=== PATIENT | male | born 1970 | race Two or more races ===

== ENCOUNTER 2023-01-02 18:28 | Inpatient (IN) | payer MEDICAID, OTHER ==
[~2023-01-02] VITALS: Ht 175.3 cm; Wt 77.0 kg
[2023-01-02 19:50] LABS: Basophils # (auto) 0 10 ^3/uL (0-0.2); Hemoglobin 12.6 g/dL (13.5-17.5); Mean Corpuscular Hemoglobin 32.2 pg (28.0-32.0); Nucleated Red Blood Cells % 0.1 %
[2023-01-02 19:54] LABS: Basophils % (auto) 0.3 % (0.0-2.0); Eosinophils # (auto) 0.1 10 ^3/uL (0-0.8); Eosinophils % (auto) 1.2 % (0.0-7.0); Hematocrit 36.1 % (41.0-53.0); Lymphocytes # (auto) 1.5 10 ^3/uL (0.4-5.4); Lymphocytes % (auto) 13.5 % (10.0-50.0); Mean Corpuscular Hgb Conc. 34.8 g/dL (32.0-36.0); Mean Corpuscular Volume 92.5 fL (80.0-100.0); Monocytes # (auto) 0.5 10 ^3/uL (0-1.3); Monocytes % (auto) 4.6 % (0.0-12.0); Neutrophils # (auto) 8.8 10 ^3/uL (1.6-8.6); Neutrophils % (auto) 80.4 % (37.0-80.0); Red Cell Distribution Width 13.2 % (11.8-14.3); White Blood Cell 10.9 10^3/uL (4.4-10.8)
[2023-01-02 20:05] VITALS: PULSE 61; RESP 16; O2SAT 92
[2023-01-02 20:07] LABS: INR 1.08 (0.9-1.15); Prothrombin Time 11.3 sec (9.3-11.8)
[2023-01-02 20:12] LABS: Alanine Aminotransferase 28 U/L (16-61); Albumin 3.1 g/dL (3.4-5.0); Anion Gap 3 (5-15); Aspartate Aminotransferase 38 U/L (15-37); Blood Alcohol < 3.0 mg/dL (<10); Blood Urea Nitrogen 9 mg/dL (7-18); Calcium 7.3 mg/dL (8.5-10.1); Carbon Dioxide 25 mmol/L (21-32); Chloride 112 mmol/L (98-107); Glucose 252 mg/dL (74-106); Lipase 140 U/L (73-393); Potassium 3.3 mmol/L (3.5-5.1); Salicylate 2.1 mg/dL (2.8-20.0); Sodium 140 mmol/L (136-145)
[2023-01-02 20:16] LABS: Alkaline Phosphatase 64 U/L (45-117); BUN/Creatinine Ratio 10.5 (10.0-20.0); Bilirubin, Total 0.2 mg/dL (0.2-1.0); GFR African American 121 mL/min; GFR Non-African American 100 mL/min; Total Protein 5.7 g/dL (6.4-8.2)
[2023-01-02] MEDS ORDERED: ONDANSETRON HCL 4 MG/2 ML VIAL IV ONE (21:30)
[2023-01-02] MEDS ORDERED: DOCUSATE SOD 100 MG CAP PO PRN (22:00)
[2023-01-02] MEDS ORDERED: ONDANSETRON HCL 4 MG/2 ML VIAL IV PRN (22:00)
[2023-01-02] MEDS ORDERED: HYDROcodone-ACET 5/325MG TAB PO PRN (22:00)
[2023-01-02] MEDS ORDERED: POTASSIUM CHL 20MEQ/100ML 100 ML IV ONE (22:00)
[2023-01-02] MEDS: SODIUM CHLOR 0.9% PF (SALINE LOCK) 10ML VIAL/SYR IV SCH (22:51)
[2023-01-02] MEDS ORDERED: MORPHINE SULFATE INJ 2 MG/ml SYRG IV PRN (23:45)
[2023-01-02] MEDS ORDERED: NITROGLYCERIN 0.4 MG SL TAB SL PRN (23:45)
[2023-01-03 01:29] LABS: Urine Bacteria FEW /hpf (None Seen); Urine Blood Negative /uL (Negative); Urine Clarity Clear (Clear); Urine Color Colorless (Yellow); Urine Hyaline Cast FEW /lpf (0 - 2); Urine Mucus FEW (None Seen); Urine Protein, UAD TRACE (Negative); Urine Specific Gravity 1.011 (1.001-1.035); Urine Urobilinogen Normal (Negative); Urine WBC 2 /hpf (0 - 3); Urine pH 5.5 (5.0-8.0)
[2023-01-03 01:45] LABS: Alcohol, Urine < 3.0 mg/dL (0-10); Amphetamine Screen, Urine NEGATIVE (NEGATIVE); Barbiturate Scree,Urine NEGATIVE (NEGATIVE); Benzodiazephine Screen, Urine NEGATIVE (NEGATIVE); Cannabinoid Screen, Urine NEGATIVE (NEGATIVE); Cocaine Screen, Urine NEGATIVE (NEGATIVE); Phencyclidine Screen, Urine NEGATIVE (NEGATIVE)
[2023-01-03 01:48] LABS: Opiate Scree,Urine NEGATIVE (NEGATIVE)
[2023-01-03 05:41] LABS: Basophils # (auto) 0 10 ^3/uL (0-0.2); Basophils % (auto) 0.1 % (0.0-2.0); Eosinophils # (auto) 0 10 ^3/uL (0-0.8); Hematocrit 38.9 % (41.0-53.0); Hemoglobin 13.4 g/dL (13.5-17.5); Lymphocytes % (auto) 7.8 % (10.0-50.0); Mean Corpuscular Hemoglobin 32.2 pg (28.0-32.0); Mean Corpuscular Hgb Conc. 34.4 g/dL (32.0-36.0); Mean Corpuscular Volume 93.4 fL (80.0-100.0); Monocytes # (auto) 0.6 10 ^3/uL (0-1.3); Monocytes % (auto) 4.4 % (0.0-12.0); Neutrophils # (auto) 11.3 10 ^3/uL (1.6-8.6); Neutrophils % (auto) 87.7 % (37.0-80.0); Nucleated Red Blood Cells % 0.1 %; Red Blood Cells 4.17 10^6/uL (4.5-5.90); Red Cell Distribution Width 13.7 % (11.8-14.3); White Blood Cell 12.9 10^3/uL (4.4-10.8)
[2023-01-03 05:55] LABS: Potassium 5.5 mmol/L (3.5-5.1)
[2023-01-03 06:01] LABS: Albumin 3.6 g/dL (3.4-5.0); BUN/Creatinine Ratio 14.3 (10.0-20.0); Bilirubin, Total 0.2 mg/dL (0.2-1.0); Calcium 7.3 mg/dL (8.5-10.1); Total Protein 6.5 g/dL (6.4-8.2)
[2023-01-03] MEDS: SODIUM CHLOR 0.9% PF (SALINE LOCK) 10ML VIAL/SYR IV SCH ×3 (06:16→21:13)
[2023-01-03 07:20] VITALS: PULSE 92; RESP 11; O2SAT 93
[2023-01-03] MEDS ORDERED: NALOXONE HCL 1MG/ML 2ML SYRINGE IV ONE (08:30)
[2023-01-03] MEDS ORDERED: IPRATROPIUM BROM 0.5 MG/2.5ML INH SOL NEB ONE (08:45)
[2023-01-03] MEDS: AZITHROMYCIN 500MG/ 250ML 250 ML IV SCH (09:11)
[2023-01-03] MEDS: ACETAMINOPHEN 325 MG TAB PO PRN (18:47)
[2023-01-04] MEDS: SODIUM CHLOR 0.9% PF (SALINE LOCK) 10ML VIAL/SYR IV SCH ×3 (05:34→22:21)
[2023-01-04 07:30] VITALS: PULSE 85; RESP 15; O2SAT 92
[2023-01-04 07:38] LABS: Basophils # (auto) 0 10 ^3/uL (0-0.2); Basophils % (auto) 0.1 % (0.0-2.0); Eosinophils # (auto) 0 10 ^3/uL (0-0.8); Hematocrit 38.6 % (41.0-53.0); Hemoglobin 13.2 g/dL (13.5-17.5); Lymphocytes # (auto) 0.5 10 ^3/uL (0.4-5.4); Mean Corpuscular Hemoglobin 32.1 pg (28.0-32.0); Mean Corpuscular Hgb Conc. 34.2 g/dL (32.0-36.0); Monocytes # (auto) 0.5 10 ^3/uL (0-1.3); Monocytes % (auto) 3.2 % (0.0-12.0); Neutrophils % (auto) 93.7 % (37.0-80.0); Nucleated Red Blood Cells % 0.1 %; Red Blood Cells 4.11 10^6/uL (4.5-5.90); Red Cell Distribution Width 13.6 % (11.8-14.3)
[2023-01-04 07:41] LABS: Albumin 2.6 g/dL (3.4-5.0); Calcium 7.8 mg/dL (8.5-10.1); Potassium 3.9 mmol/L (3.5-5.1)
[2023-01-04 07:45] LABS: BUN/Creatinine Ratio 23.2 (10.0-20.0); Bilirubin, Total 0.3 mg/dL (0.2-1.0); Total Protein 5.6 g/dL (6.4-8.2)
[2023-01-04] MEDS ORDERED: cefTRIAXone 1GM/50ML D5W 50 ML IV SCH (09:00)
[2023-01-04] MEDS: NICOTINE 21MG/24 HR TOPICAL PATCH TD SCH (10:00)
[2023-01-04] MEDS: AZITHROMYCIN 500MG/ 250ML 250 ML IV SCH (10:08)
[2023-01-04 15:18] LABS: Rapid Influenza A Negative (Negative); Rapid Influenza B Negative (Negative)
[2023-01-04] MEDS ORDERED: ALBUTEROL SULF 2.5 MG/0.5ML(0.5%) NEB SOLN NEB PRN (15:45)
[2023-01-04] MEDS ORDERED: IPRATROPIUM BROM 0.5 MG/2.5ML INH SOL NEB PRN (15:45)
[2023-01-04 16:08] LABS: Erythrocyte Sedimentation Rate 31 mm/hr (0-20)
[2023-01-04] MEDS ORDERED: IOHEXOL 350 MG/ML 100ML IJ ONE (16:20)
[2023-01-04 17:38] VITALS: BP 99/99; PULSE 81; RESP 18; TEMP 98.9; O2SAT 92
[2023-01-04 18:00] VITALS: O2SAT 94
[2023-01-04 19:30] VITALS: PULSE 91; RESP 16; O2SAT 96
[2023-01-04] MEDS: PIPERACILLIN-TAZOB 3.375GM 100 ML IV SCH (22:33)
[2023-01-05] MEDS: SODIUM CHLOR 0.9% PF (SALINE LOCK) 10ML VIAL/SYR IV SCH ×3 (05:32→22:41)
[2023-01-05] MEDS: PIPERACILLIN-TAZOB 3.375GM 100 ML IV SCH ×3 (05:53→22:42)
[2023-01-05 06:05] VITALS: O2SAT 97
[2023-01-05 06:39] LABS: Potassium 3.7 mmol/L (3.5-5.1)
[2023-01-05 06:43] LABS: BUN/Creatinine Ratio 18.3 (10.0-20.0); Calcium 8.4 mg/dL (8.7-10.4)
[2023-01-05 07:30] VITALS: PULSE 79; RESP 18; O2SAT 93
[2023-01-05] MEDS: NICOTINE 21MG/24 HR TOPICAL PATCH TD SCH (10:00)
[2023-01-05] MEDS: AZITHROMYCIN 500MG/ 250ML 250 ML IV SCH (10:08)
[2023-01-05] MEDS: ENOXAPARIN SOD 40 MG/0.4 ML SYRINGE SC SCH (10:08)
[2023-01-05] MEDS: PANTOPRAZOLE 40 MG TAB PO SCH (10:08)
[2023-01-05 18:36] VITALS: O2SAT 93
[2023-01-05 20:00] VITALS: PULSE 83; RESP 25; O2SAT 91
[2023-01-05] MEDS ORDERED: IOHEXOL 350 MG/ML 100ML IJ ONE (23:09)
[2023-01-05 23:40] VITALS: BP 131/78; PULSE 80; RESP 17; TEMP 98.5; O2SAT 95
[2023-01-05 23:53] VITALS: BP 131/78; PULSE 80; RESP 17; TEMP 98.5; O2SAT 95
[2023-01-06] VITALS (9 sets, daily range): BP systolic 125–143; BP diastolic 80–91; PULSE 18–88; RESP 16–76; TEMP 97.9–98.6; O2SAT 91–96
[2023-01-06] MEDS: ACETAMINOPHEN 325 MG TAB PO PRN (02:05)
[2023-01-06] MEDS ORDERED: NORPTMEDS CO (02:56)
[2023-01-06] MEDS: PIPERACILLIN-TAZOB 3.375GM 100 ML IV SCH ×3 (05:57→21:25)
[2023-01-06] MEDS: SODIUM CHLOR 0.9% PF (SALINE LOCK) 10ML VIAL/SYR IV SCH ×3 (05:57→21:25)
[2023-01-06] MEDS: AZITHROMYCIN 500MG/ 250ML 250 ML IV SCH (10:15)
[2023-01-06] MEDS: PANTOPRAZOLE 40 MG TAB PO SCH (10:16)
[2023-01-06] MEDS: NICOTINE 21MG/24 HR TOPICAL PATCH TD SCH (10:16)
[2023-01-06] MEDS: ENOXAPARIN SOD 40 MG/0.4 ML SYRINGE SC SCH (10:16)
[2023-01-06] MEDS: LORazepam 2MG/ML-1ML VIAL IV PRN ×2 (10:56→21:25)
[2023-01-06 21:24] LABS: Basophils # (auto) 0 10 ^3/uL (0-0.2); Basophils % (auto) 0.3 % (0.0-2.0); Eosinophils # (auto) 0.2 10 ^3/uL (0-0.8); Eosinophils % (auto) 2.1 % (0.0-7.0); Hematocrit 38.9 % (41.0-53.0); Hemoglobin 13.6 g/dL (13.5-17.5); Lymphocytes # (auto) 1.3 10 ^3/uL (0.4-5.4); Lymphocytes % (auto) 12.9 % (10.0-50.0); Mean Corpuscular Volume 91.7 fL (80.0-100.0); Monocytes # (auto) 0.7 10 ^3/uL (0-1.3); Monocytes % (auto) 6.9 % (0.0-12.0); Neutrophils % (auto) 77.8 % (37.0-80.0); Nucleated Red Blood Cells % 0.1 %; Red Blood Cells 4.25 10^6/uL (4.5-5.90); Red Cell Distribution Width 13.8 % (11.8-14.3); White Blood Cell 10.3 10^3/uL (4.4-10.8)
[2023-01-06 21:47] LABS: Alanine Aminotransferase 52 U/L (7-40); Albumin 4.1 g/dL (3.2-4.8); Alkaline Phosphatase 100 U/L (46-116); Aspartate Aminotransferase 104 U/L (13-40); BUN/Creatinine Ratio 9.1 (10.0-20.0); Bilirubin, Total 0.6 mg/dL (0.2-1.0); Blood Urea Nitrogen 6 mg/dL (9-23); Calcium 9.5 mg/dL (8.7-10.4); Chloride 105 mmol/L (98-107); Glucose 122 mg/dL (74-106); Potassium 3.4 mmol/L (3.5-5.1); Sodium 137 mmol/L (136-145)
[2023-01-06 21:48] LABS: Total Protein 6.8 g/dL (5.7-8.2)
[2023-01-07 05:03] VITALS: BP 132/86; PULSE 83; RESP 18; TEMP 98.2; O2SAT 97
[2023-01-07] MEDS: PIPERACILLIN-TAZOB 3.375GM 100 ML IV SCH ×2 (05:22→14:00)
[2023-01-07] MEDS: SODIUM CHLOR 0.9% PF (SALINE LOCK) 10ML VIAL/SYR IV SCH ×2 (05:23→14:00)
[2023-01-07 06:16] VITALS: O2SAT 97
[2023-01-07 08:00] VITALS: PULSE 86
[2023-01-07 09:00] VITALS: BP 106/70; PULSE 75; RESP 18; TEMP 97.8; O2SAT 94
[2023-01-07 09:34] LABS: Hematocrit 39.5 % (41.0-53.0); Hemoglobin 13.7 g/dL (13.5-17.5); Mean Corpuscular Hemoglobin 31.5 pg (28.0-32.0); Mean Corpuscular Hgb Conc. 34.7 g/dL (32.0-36.0); Mean Corpuscular Volume 90.8 fL (80.0-100.0); Red Blood Cells 4.35 10^6/uL (4.5-5.90); Red Cell Distribution Width 13.7 % (11.8-14.3); White Blood Cell 10.3 10^3/uL (4.4-10.8)
[2023-01-07 09:39] LABS: Basophils % (manual) 0 (0.0-2.0); Blast Cells 0; Metamyelocytes % 0; Myelocytes % 0; Promyelocytes % 0; Reactive Lymphocytes 0
[2023-01-07 09:44] LABS: Anion Gap 7.8 (5-15); Carbon Dioxide 23.2 mmol/L (20-30); Chloride 106 mmol/L (98-107); Potassium 3.6 mmol/L (3.5-5.1); Sodium 137 mmol/L (136-145)
[2023-01-07 09:45] LABS: Calcium 9.4 mg/dL (8.5-10.1)
[2023-01-07 09:50] LABS: BUN/Creatinine Ratio 9.5 (10.0-20.0); Blood Urea Nitrogen 6 mg/dL (9-23); Glucose 117 mg/dL (74-106)
[2023-01-07 11:17] LABS: Band Neutrophils % (manual) 5; Eosinophils % (manual) 2 (0-7); Lymphocytes % (manual) 12 (10.0-50.0); Monocytes % (manual) 7 (0-12)
[2023-01-07 11:18] LABS: Platelet Estimate Adequate; RBC Morphology Normal
[2023-01-07] MEDS: NICOTINE 21MG/24 HR TOPICAL PATCH TD SCH (12:00)
[2023-01-07] MEDS: PANTOPRAZOLE 40 MG TAB PO SCH (12:00)
[2023-01-07] MEDS: ENOXAPARIN SOD 40 MG/0.4 ML SYRINGE SC SCH (12:01)
[2023-01-07] MEDS: AZITHROMYCIN 500MG/ 250ML 250 ML IV SCH (12:11)
[2023-01-07] MEDS ORDERED: FERR-7 PO (12:33)
[2023-01-07] MEDS ORDERED: DOXY-448 PO (12:33)
== END 2023-01-07 16:00 | disposition home or self-care (01) | DRG 871 ==
LOC: ER 18:28 → EDBD 18:28 → TELE 23:39 → TELE-E-ADS 01-05 22:15
PROVIDERS: ADMIT Nurse Practitioner Family; ATTEND Nurse Practitioner Acute Care
DX: A41.9 Sepsis, unspecified organism (principal); G93.41 Metabolic encephalopathy; J96.01 Acute respiratory failure with hypoxia; J69.0 Pneumonitis due to inhalation of food and vomit; E87.6 Hypokalemia; F17.200 Nicotine dependence, unspecified, uncomplicated; F41.9 Anxiety disorder, unspecified; R26.81 Unsteadiness on feet; F19.10 Other psychoactive substance abuse, uncomplicated; R79.89 Other specified abnormal findings of blood chemistry; T40.411A Poisoning by fentanyl or fentanyl analogs, accidental (unintentional), initial encounter; Y92.89 Other specified places as the place of occurrence of the external cause
CPT/HCPCS: 36415; 70450; 71045; 71275; 80048; 80053; 80307; 80320; 80329; 81001; 83036; 83690; 83735; 83880; 84484; 84702; 85007; 85025; 85027; 85379; 85610; 85652; 85730; 86141; 87804; 93005; 93926; 93970; 96361; 96374; 97163; G0378; J0696; J2405; J2543; J3480